=== PATIENT | male | born 1975 | race Hispanic/Latino ===

== ENCOUNTER 2022-07-31 18:23 | Observation (INO) | payer MEDICARE ==
[~2022-07-31 18:23] MED LIST: Iopamidol-370 76% 500 ML 1 ML ONE
[2022-07-31 19:17] LABS: ALT (SGPT) 44 U/L (8-55); AST (SGOT) 29 U/L (5-34); Albumin 4.1 g/dL (3.5-5.0); Alkaline Phosphatase 59 U/L (40-110); Anion Gap 15 mmol/L (10-20); BUN (Urea Nitrogen) 19 mg/dL (8.9-20.6); Bilirubin, Total 0.4 mg/dL (0.2-1.2); Calc. Creatinine Clearance 0 mL/min (70-130); Calcium 9.4 mg/dL (7.8-10.44); Carbon Dioxide 24 mmol/L (22-29); Chloride 100 mmol/L (98-107); Estimated GFR 68; Globulin 3.5 g/dL (2.4-3.5); Glucose 133 mg/dL (70-105); Potassium 3.1 mmol/L (3.5-5.1); Protein, Total 7.6 g/dL (6.0-8.3); Sodium 136 mmol/L (136-145)
[2022-07-31 19:20] LABS: #Basophils 0.1 thou/uL (0.0-0.2); #Eosinphils 0.2 thou/uL (0.0-0.7); #Lymphocytes 2.3 thou/uL (1.20-3.40); #Monocytes 0.7 thou/uL (0.11-0.59); #Neutrophils 4.3 thou/uL (1.40-6.50); %Basophils 0.8 % (0.0-1.0); %Eosinophils 3.2 % (0.0-10.0); %Lymphocytes 30.1 % (21.0-51.0); %Monocytes 9.5 % (0.0-10.0); %Neutrophils 56.4 % (42.0-75.0); Hemoglobin 16.6 g/dL (14.0-18.0); INR-International Normal Ratio 0.9; Mean Corpuscular Hemoglobin 31.8 pg (27.0-31.0); PTT 31.2 sec (22.9-36.1); Platelet Count 221 10x3/uL (130-400); Prothrombin Time 12.6 sec (12.0-14.7); RBC Distribution Width 12.7 % (11.5-14.5); Red Blood Cell (RBC) Count 5.22 mill/uL (4.70-6.10); White Blood Cell (WBC) Count 7.6 10x3/uL (4.8-10.8)
[2022-07-31] MEDS ORDERED: Potassium Chloride 20 MEQ TAB ONE (19:32)
[2022-08-01 04:56] LABS: Hemoglobin A1c 6.1 % (4.0-6.0)
[2022-08-01 05:08] LABS: #Eosinphils 0.1 thou/uL (0.0-0.7); #Lymphocytes 2.4 thou/uL (1.20-3.40); #Monocytes 0.6 thou/uL (0.11-0.59); %Basophils 0.5 % (0.0-1.0); %Eosinophils 1.9 % (0.0-10.0); %Lymphocytes 33.1 % (21.0-51.0); %Monocytes 8.6 % (0.0-10.0); %Neutrophils 55.9 % (42.0-75.0); Hemoglobin 15.3 g/dL (14.0-18.0); Mean Corpuscular HGB CONC 34.4 g/dL (32.0-36.0); Mean Corpuscular Hemoglobin 31.7 pg (27.0-31.0); Mean Corpuscular Volume 92.2 fl (78.0-98.0); Mean Platelet Volume 9.3 fL (7.4-10.4); Platelet Count 192 10x3/uL (130-400); RBC Distribution Width 12.8 % (11.5-14.5); Red Blood Cell (RBC) Count 4.81 mill/uL (4.70-6.10); White Blood Cell (WBC) Count 7.2 10x3/uL (4.8-10.8)
[2022-08-01 05:19] LABS: ALT (SGPT) 38 U/L (8-55); AST (SGOT) 23 U/L (5-34); Albumin 3.8 g/dL (3.5-5.0); Alkaline Phosphatase 47 U/L (40-110); Anion Gap 15 mmol/L (10-20); BUN (Urea Nitrogen) 18 mg/dL (8.9-20.6); Bilirubin, Total 0.5 mg/dL (0.2-1.2); Calc. Creatinine Clearance 0 mL/min (70-130); Calcium 9.3 mg/dL (7.8-10.44); Carbon Dioxide 27 mmol/L (22-29); Cardiac Risk 3.7 (Less than 4.5); Chloride 102 mmol/L (98-107); Cholesterol 186 mg/dl (< 200 Desired); Estimated GFR 65; Globulin 2.9 g/dL (2.4-3.5); Glucose 113 mg/dL (70-105); HDL Cholesterol 50 mg/dL (>60 Neg Risk); LDL Cholesterol, Calculated 101 mg/dL; Potassium 3.5 mmol/L (3.5-5.1); Protein, Total 6.7 g/dL (6.0-8.3); Sodium 140 mmol/L (136-145); Triglycerides 173 mg/dL (Less than 150)
[2022-08-01 10:53] VITALS: BP 155/92; TEMP 97.9
[2022-08-01] MEDS ORDERED: Dicyclomine 20 MG TAB PO PRN (11:02)
[2022-08-01] MEDS ORDERED: Potassium Chloride 20 MEQ TAB PO SCH (15:00)
[2022-08-01] MEDS ORDERED: Metoprolol Tartrate 50 MG TAB PO SCH (21:00)
[2022-08-01] MEDS ORDERED: cloNIDine 0.1 MG TAB PO SCH (21:00)
[2022-08-01] MEDS ORDERED: Atorvastatin Calcium 40 MG TAB PO SCH (21:00)
[2022-08-02] MEDS ORDERED: metFORMIN 500 MG TAB PO SCH (08:00)
[2022-08-02] MEDS ORDERED: Chlorthalidone 25 MG TAB PO SCH (09:00)
[2022-08-02] MEDS ORDERED: Citalopram 10 MG TAB PO SCH (09:00)
[2022-08-08] MEDS ORDERED: Ergocalciferol 1.25 MG(50,000 UNITS) CAP PO SCH (09:00)
== END 2022-08-01 13:05 | disposition home or self-care (01) ==
LOC: ERS 18:23 → ERHOLD 22:43
PROVIDERS: ADMIT Emergency Medicine; ATTEND Emergency Medicine
DX: G51.0 Bell's palsy (principal); E87.6 Hypokalemia; E78.5 Hyperlipidemia, unspecified; I12.9 Hypertensive chronic kidney disease with stage 1 through stage 4 chronic kidney disease, or unspecified chronic kidney disease; E11.22 Type 2 diabetes mellitus with diabetic chronic kidney disease; N18.30 Chronic kidney disease, stage 3 unspecified; I69.398 Other sequelae of cerebral infarction; H54.3 Unqualified visual loss, both eyes; Z79.84 Long term (current) use of oral hypoglycemic drugs; Z79.899 Other long term (current) drug therapy
CPT/HCPCS: 70450; 70496; 70498; 70551; 71045; 80053; 80061; 82962; 83036; 84484; 85025; 85610; 85652; 85730; 93005; 94760; 96360; 96361; 96372; 99285; G0378 ×2; 36415; 36416; 84443; J1650; Q9967